=== PATIENT | male | born 2000 | race Two or more races ===

== ENCOUNTER 2023-07-18 20:19 | Emergency (ER) | payer MEDICAID, OTHER ==
[~2023-07-18] VITALS: Ht 182.9 cm; Wt 81.6 kg
[2023-07-18] MEDS: KETOROLAC TROMETHAMINE 30 MG INJ IM ONE (21:13)
[2023-07-18] MEDS ORDERED: NAPR-1009 PO (22:18)
[2023-07-18 22:22] VITALS: BP 114/71; O2SAT 100
== END 2023-07-18 22:22 | disposition home or self-care (01) ==
LOC: ER 20:26
DX: S93.492A Sprain of other ligament of left ankle, initial encounter (principal); Z79.899 Other long term (current) drug therapy; W57.XXXA Bitten or stung by nonvenomous insect and other nonvenomous arthropods, initial encounter; Y93.89 Activity, other specified; Y92.89 Other specified places as the place of occurrence of the external cause; Y99.8 Other external cause status
CPT/HCPCS: 29515; 73610; 73620; 96372; 99284; J1885; A4606; A4663